=== PATIENT | female | born 1985 | race Asian ===

== ENCOUNTER 2019-03-13 21:20 | Inpatient (IN) | payer BC ==
[2019-03-13 21:55] VITALS: BMI 24.3
--- NOTE | 2019-03-13 22:00 | PDOC.LDHP ---
Labor and Delivery H&P Allergies/Adverse Reactions: Allergies Allergy/AdvReac Type Severity Reaction Status Date / Time Beef Containing Products Allergy Intermediate Hives Verified 03/13/19 21:46 doxycycline Allergy Intermediate Verified 03/13/19 21:46 tetracycline Allergy Mild Stomach Verified 03/13/19 21:46 Ache - Plan -: PCP: Erich HPI: This is a 33 yo at 37.5 wks presenting for contractions. They started about 2pm today 10 minutes apart and have gradually gotten stronger and closer, to about every 6-7 minutes now. She states she has been able to tolerate PO intake without difficulty. She affirms movement, denies ROM, denies bleeding/discharge. Denies DEGROOT, visual changes, SOB, or swelling. History: OB hx: G1 PMH: neg PSH: neg Meds: PNV Soc Hx: denies smoking, alcohol, drugs Fam Hx: denies downs, congenital defects Blood type: O+ Abs screen neg Hep b neg RPR/HIV neg Rubella immune PAP NILM GC/CT neg 1 hr GCT: 81 GBS unknown REVIEW OF SYSTEMS: Gen: no fever, chills, or sweats Neuro: no numbness/tingling, no weakness, denies headache Eyes: no visual changes ENT: no hearing changes, no sore throat, no runny nose Resp: no cough, no SOB, no wheeze Card: denies chest pain, no palpitations GI: no N/V/D, no abdominal pain : no dysuria, no hematuria MSK: no myalgias, no joint pain/stiffness Heme: no easy bruising/bleeding Skin: no rash, no erythema PHYSICAL EXAMINATION: General: NAD, alert and oriented x3 HEENT: PERRLA, EOMI, normal sclera, oropharynx without erythema or exudate Neck: Supple. Full ROM. Heart/Cardiovascular System: RRR, Cap refill < 3 seconds, no rub, no murmur Lungs/Respiratory System: clear to auscultation bilaterally. No increased work of breathing. Room air. Abdomen/Gastro-Intestinal System: no abdominal tenderness, normal bowel sounds, Gravid Extremities: Warm extremities. No cyanosis or edema. Neuro: No gross deficits appreciated. CN 2-12 grossly intact Psychiatry: Awake, Alert and cooperative with exam Skin: No lesions, rashes, or ulcers Musculoskeletal: Full ROM A/P: This is a 33 yo at 37.5 wks presenting for contractions # Term , active labor - GBS negative - SVE 1 cm in office yesterday, /-3 posterior at presentation now /- 3 after 3.5 hours - Gave patient morphine for pain relief, desires epidural - Will admit for labor
[2019-03-13] MEDS ORDERED: Lactated Ringer's 1,000 ML IV SCH (22:15)
[2019-03-13] MEDS ORDERED: Morphine 4 MG/ML VIAL SLOW IVP SCH ×2 (22:30→23:45)
[2019-03-13] MEDS: Lactated Ringer's 1,000 ML IV SCH (23:50)
[2019-03-14] MEDS ORDERED: NS / Oxytocin 40 units/1000ml 1,000 ML IV PRN (01:50)
[2019-03-14] MEDS ORDERED: Promethazine HCl 25 MG/ML VIAL IM PRN ×2 (01:50→03:01)
[2019-03-14] MEDS ORDERED: Ondansetron PF 4 MG/2 ML Vial IVP PRN ×3 (01:50→16:32)
[2019-03-14] MEDS ORDERED: Lidocaine 1% (PF) 30 ML VIAL SC SCH (01:50)
[2019-03-14] MEDS ORDERED: Butorphanol Tartrate 1 MG/ML VIAL SLOW IVP SCH (02:00)
[2019-03-14 02:07] LABS: Hemoglobin 13.8 g/dL (12.0-16.0); Mean Corpuscular HGB CONC 34.2 g/dL (32.0-36.0); Mean Corpuscular Hemoglobin 33.1 pg (27.0-31.0); Mean Corpuscular Volume 96.6 fL (78.0-98.0); Platelet Count 239 thou/uL (130-400); RBC Distribution Width 11.5 % (11.5-14.5); Red Blood Cell (RBC) Count 4.19 mill/uL (4.20-5.40); White Blood Cell (WBC) Count 11.8 thou/uL (4.8-10.8)
[2019-03-14] MEDS ORDERED: Fentanyl 4 mcg/Bup 0.1% Cadd 100 ML ONE ×2 (02:13→11:03)
[2019-03-14 02:46] LABS: HBSAg Index 0.35 S/CO (0-0.99); Hep B Surf Ag Non-Reactive S/CO (NonReactive)
[2019-03-14] MEDS ORDERED: diphenhydrAMINE 50 MG/ML VIAL IVP PRN (03:01)
[2019-03-14] MEDS ORDERED: Acetaminophen 325 MG TAB PO PRN (03:01)
[2019-03-14] MEDS ORDERED: ePHEDrine/0.9% NaCl/PF SYRINGE 50 mg/10 ml SLOW IVP PRN (03:01)
[2019-03-14] MEDS ORDERED: Naloxone HCl 0.4 mg/ml Vial IVP PRN ×2 (03:01)
[2019-03-14] MEDS ORDERED: Lactated Ringer's 500 ML IV PRN (03:01)
[2019-03-14] MEDS ORDERED: Hydrocerin (Eucerin) Cream 120 gm Jar TOP PRN (03:01)
[2019-03-14] MEDS ORDERED: Communication Order-Pharmacy FS SCH (03:15)
[2019-03-14] MEDS ORDERED: Fentanyl 4 mcg/Bupivacaine 0.1% Cassette 100 ML EPIDURAL SCH (03:15)
[2019-03-14] MEDS: Lactated Ringer's 1,000 ML IV SCH ×2 (04:00→11:25)
[2019-03-14 04:22] LABS: Syphilis Antibody Nonreactive (Nonreactive); Syphilis Antibody Index 0.04 S/CO (<1.00 Non-Reactive)
--- NOTE | 2019-03-14 06:49 | PDOC.LDPN ---
Labor & Delivery Progress Note - Subjective Subjective: comfortable, no concerns - Objective Vital signs reviewed and normal: yes General: NAD, resting, breathing through contractions Uterine fundus: non tender Dilation: 4.5 Effacement: 90% Station: -2 FHT: category 1 Gould contractions every: 4-5 - Assessment (1) Term Code(s): Z34.90 - ENCNTR FOR SUPRVSN OF NORMAL , UNSP, UNSP TRIMESTER Current Visit: Yes Status: Acute -: This is a 33 yo at 37.5 wks presenting for contractions # Term , active labor - GBS negative - 1/-3 -> 4/90/-3 -> 4.5/90/-2 - contactions q4-5 - epidural providing sufficient pain relief - expectant management Addendum - Attending - Attending Attestation Date/Time: 03/14/19 2221 I personally evaluated the patient and discussed the management with Dr. Valdes I agree with the History, Examination, Assessment and Plan documented above with any addition or exceptions noted below.
--- NOTE | 2019-03-14 09:42 | PDOC.LDPN ---
Labor & Delivery Progress Note - Subjective Subjective: comfortable - Objective Vital signs reviewed and normal: yes General: NAD, resting Dilation: 8 Effacement: 100% Station: 0 FHT: category 1 AROM: clear fluid - Assessment (1) Term Code(s): Z34.90 - ENCNTR FOR SUPRVSN OF NORMAL , UNSP, UNSP TRIMESTER Current Visit: Yes Status: Acute -: This is a 33 yo at 37.5 wks presenting for contractions # Term , active labor - GBS negative - 1/-3 -> 4/-3 -> 4.5/90/-2 -> 790/-2 -> 8/100/0, AROM @ 0940 - contactions q4-5 - epidural providing sufficient pain relief - expectant management
[2019-03-14] MEDS ORDERED: NS / Oxytocin 40 units/1000ml 1,000 ML ONE (09:52)
[2019-03-14] MEDS ORDERED: Lidocaine 1% (PF) 30 ML VIAL ONE (09:52)
[2019-03-14] MEDS ORDERED: Misoprostol 100 MCG TAB ONE (11:05)
[2019-03-14] MEDS ORDERED: ePHEDrine/0.9% NaCl/PF SYRINGE 50 mg/10 ml ONE (11:11)
[2019-03-14] MEDS ORDERED: Bupivacaine HCl 0.25%/Epi 0.0005/PF 10 ML VIAL FS ONE (11:11)
--- NOTE | 2019-03-14 12:36 | PDOC.LDPN ---
Labor & Delivery Progress Note - Subjective Subjective: comfortable - Objective Vital signs reviewed and normal: yes General: NAD Dilation: 9 Effacement: 100% Station: 0 FHT: category 1 AROM: clear fluid - Assessment (1) Term Code(s): Z34.90 - ENCNTR FOR SUPRVSN OF NORMAL , UNSP, UNSP TRIMESTER Current Visit: Yes Status: Acute -: This is a 33 yo at 37.5 wks presenting for contractions # Term , active labor - GBS negative - 1/-3 -> 4/-3 -> 4.5/90/-2 -> 7/-2 -> 8/100/0, AROM @ 0940 -> 9/100/ 0 @ 1230, start pit low dose - contactions q4-5 - epidural providing sufficient pain relief - expectant management
[2019-03-14] MEDS ORDERED: NS w/ Oxytocin 10 units 500 ML IV SCH (12:45)
--- NOTE | 2019-03-14 15:06 | PDOC.OPDEL ---
OB Operative/Delivery Note - Additional Findings/Plan Compilations/Other Findings: Vaginal Delivery Delivering Physician: Dr Jonny Valdes Attending: Dr. Jodi Villalba Procedure: Spontaneous Vaginal Delivery Anesthesia: epidural QBL: 426 ml Pre-op Diagnosis: 1.Term intrauterine in labor Post-op Diagnosis: 1.Term intrauterine , delivered Indications: A 33y/o female presents in active labor Delivery Note: This is 33yo F @ 37.6 wks who delivered a viable M at 1314 on 03/14/19. Following an uneventful antepartum course, a vigorous male was delivered over an intact perineum in the R occipitoanterior position. Anterior Shoulder and then remainder of the body delivered. No nuchal cord. The head was held down and mouth and nares were bulb suctioned. Cord clamped and cut and cord blood collected. Placenta delivered intact in the Grady presentation with a 3 vessel cord noted. Fundal massage was performed and the fundus was firm. The cervix and vagina were inspected and found to have R and L vaginal side wall tear along with 2nd degree perineal tear in a stellate fashion. There was a large amount of swelling secondary to 2 hours of pushing. First the R vaginal side wall was repaired with a running locking 2-0 Vicryl suture. Then the L vaginal side wall was repaired in a running locking fashion with 2-0 vicryl suture, the 2nd degree perineal teal was incorporated in this repair in a running non-locking fashion. Following this there was a lack of hemostasis on the R sidewall so another running locking repair with 2-0 vicryl was completed. Following this hemostasis was appreciated. went to nursery in good condition for routine care. Apgars were 9/9 at 1 & 5 minutes, respectively. Patient tolerated delivery well and went to after routine recovery/care. Findings: grossly normal 5lbs 13 oz , intact placenta discarded, cord blood sent
[2019-03-14] MEDS ORDERED: Preparation H Ointment 28 GM TUBE PR PRN (16:32)
[2019-03-14] MEDS ORDERED: Milk Of Magnesia 30 ML UDCUP PO PRN (16:32)
[2019-03-14] MEDS ORDERED: Bisacodyl 10 MG SUPP PR PRN (16:32)
[2019-03-14] MEDS ORDERED: Lanolin Ointment 7 GM TUBE TOP PRN (16:32)
[2019-03-14] MEDS ORDERED: Benzocaine-Menthol 82.5 ML CAN TOP PRN (16:32)
[2019-03-14] MEDS ORDERED: Adacel (T-DAP) 0.5 ML SYRINGE IM ONE (16:32)
[2019-03-14] MEDS ORDERED: NS / Oxytocin 40 units/1000ml 1,000 ML IV SCH (16:32)
[2019-03-14] MEDS: Ferrous Sulfate 325 MG TAB PO SCH (18:37)
[2019-03-14] MEDS: Acetaminophen 325 MG TAB PO SCH (18:52)
[2019-03-14] MEDS: traMADol HCl 50 MG TAB PO PRN (18:52)
[2019-03-14] MEDS: Docusate Calcium (SURFAK) 240 MG CAP PO SCH (21:13)
[2019-03-15] MEDS: Acetaminophen 325 MG TAB PO SCH ×5 (00:06→23:59)
[2019-03-15] MEDS: traMADol HCl 50 MG TAB PO PRN ×3 (05:14→21:04)
--- NOTE | 2019-03-15 08:03 | PDOC.PP ---
Post Progress Note Post Day #: 1 Subjective: No concerns. Minimal lochia. Moderate vaginal pain. Breast feeding, LC today. PO intake tolerated: yes Flatus: yes Ambulation: yes Vital Signs (12 hours) Temp Pulse Resp BP 03/15/19 05:00 98.3 F 78 18 117/66 03/15/19 00:00 99.0 F 85 18 114/59 L 03/14/19 20:45 98.3 F 92 18 118/65 Weight Weight 137 lb - Physical Examination General: NAD Cardiovascular: RRR Abdominal: no distention, appropriately TTP Fundus firm & at: below umbilicus Extremities: negative homans (B) Neurological: no gross focal deficits Psychiatric: A&Ox3, normal affect Result Diagrams: 03/14/19 01:59 Additional Labs: Post Labs Blood Type O POSITIVE 03/14/19 02:23 Hep Bs Antigen Non-Reactive S/CO (NonReactive) 03/14/19 02:00 (1) Vaginal delivery Code(s): O80 - ENCOUNTER FOR FULL-TERM UNCOMPLICATED DELIVERY Status: Acute - Assessment/Plan PPD1 VVSAF CBC pending LC today Continue PP care, sitz baths. Plan for d/c tomorrow.
[2019-03-15] MEDS: Docusate Calcium (SURFAK) 240 MG CAP PO SCH ×2 (08:58→21:04)
[2019-03-15 09:05] LABS: Hemoglobin 10.9 g/dL (12.0-16.0); Mean Corpuscular HGB CONC 34.8 g/dL (32.0-36.0); Mean Corpuscular Hemoglobin 33.9 pg (27.0-31.0); Mean Corpuscular Volume 97.4 fL (78.0-98.0); Mean Platelet Volume 8.8 fL (7.4-10.4); Platelet Count 189 thou/uL (130-400); RBC Distribution Width 11.3 % (11.5-14.5); Red Blood Cell (RBC) Count 3.22 mill/uL (4.20-5.40); White Blood Cell (WBC) Count 16.9 thou/uL (4.8-10.8)
[2019-03-15] MEDS: Ferrous Sulfate 325 MG TAB PO SCH ×2 (09:18→13:52)
[2019-03-16] MEDS: traMADol HCl 50 MG TAB PO PRN ×2 (05:18→12:58)
[2019-03-16] MEDS: Acetaminophen 325 MG TAB PO SCH ×3 (06:28→17:47)
[2019-03-16 08:10] VITALS: BP 100/51; TEMP 98
--- NOTE | 2019-03-16 08:21 | PDOC.PP ---
Post Progress Note Post Day #: 2 Subjective: pt evaluated PPD2. Pt is doing well. Pain improved today but still having some vaginal discomfort. Minimal lochia. Pt up and ambulatory. She is breast feeding and pumping. She is eating a normal diet. She is urinating without difficulty. PO intake tolerated: yes Flatus: yes Ambulation: yes Vital Signs (12 hours) Temp Pulse Resp BP Pulse Ox 03/16/19 08:10 98.0 F 68 20 100/51 L 97 03/15/19 20:55 97 Weight Weight 137 lb - Physical Examination General: NAD Cardiovascular: RRR Respiratory: clear to auscultation bilaterally, non-labored breathing Abdominal: + bowel sounds, lochia, no distention, appropriately TTP Fundus firm & at: 2 cm below umbilicus Extremities: negative homans (B) Neurological: no gross focal deficits Psychiatric: A&Ox3, normal affect Result Diagrams: 03/15/19 08:32 Additional Labs: Post Labs Blood Type O POSITIVE 03/14/19 02:23 Hep Bs Antigen Non-Reactive S/CO (NonReactive) 03/14/19 02:00 (1) Vaginal delivery Code(s): O80 - ENCOUNTER FOR FULL-TERM UNCOMPLICATED DELIVERY Status: Acute - Assessment/Plan Pt doing well PPD2. VSSAF H&H is stable. Pain well controlled with minimal lochia. consult yesterday. Baby is latching and mom is also pumping. Plan to d/c today when baby is discharged.
[2019-03-16] MEDS: Ferrous Sulfate 325 MG TAB PO SCH ×2 (09:46→17:27)
[2019-03-16] MEDS: Docusate Calcium (SURFAK) 240 MG CAP PO SCH (09:47)
== END 2019-03-16 18:15 | disposition home or self-care (01) | DRG 807 ==
LOC: L&D/OP 21:20 → L&D 03-14 01:50 → 3SW 03-14 18:11
PROVIDERS: ADMIT Obstetrics & Gynecology; ATTEND Obstetrics & Gynecology
PROC: 10907ZC Drainage of Amniotic Fluid, Therapeutic from Products of Conception, Via Natural or Artificial Opening (ICD-10-PCS; principal; 2019-03-14)
PROC: 10E0XZZ Delivery of Products of Conception, External Approach (ICD-10-PCS; 2019-03-14)
PROC: 0KQM0ZZ Repair Perineum Muscle, Open Approach (ICD-10-PCS; 2019-03-14)
DX: O70.1 Second degree perineal laceration during delivery (principal); Z37.0 Single live birth; Z3A.37 37 weeks gestation of pregnancy
CPT/HCPCS: 36415; 51702; 85027; 86780; 86850; 86900; 86901; 87340; 90715; 99285; J0595; J2001; J2270

== ENCOUNTER 2022-08-15 10:07 | Emergency (ER) | payer BC ==
[2022-08-15 11:01] LABS: #Basophils 0.1 thou/uL (0.0-0.2); #Eosinphils 0.7 thou/uL (0.0-0.7); #Lymphocytes 2.4 thou/uL (1.20-3.40); #Monocytes 0.4 thou/uL (0.11-0.59); #Neutrophils 3.3 thou/uL (1.40-6.50); %Lymphocytes 34.6 % (21.0-51.0); %Monocytes 6.4 % (0.0-10.0); Hemoglobin 12.8 g/dL (12.0-16.0); Mean Corpuscular Hemoglobin 31.8 pg (27.0-31.0); Mean Corpuscular Volume 96.3 fL (78.0-98.0); Mean Platelet Volume 7.6 fL (7.4-10.4); Platelet Count 369 thou/uL (130-400); RBC Distribution Width 11.9 % (11.5-14.5); Red Blood Cell (RBC) Count 4.02 mill/uL (4.20-5.40); White Blood Cell (WBC) Count 6.9 thou/uL (4.8-10.8)
[2022-08-15 11:24] LABS: ALT (SGPT) 11 U/L (8-55); AST (SGOT) 17 U/L (5-34); Alkaline Phosphatase 84 U/L (40-110); Anion Gap 12 mmol/L (10-20); BUN (Urea Nitrogen) 10 mg/dL (7.0-18.7); Bilirubin, Total 0.3 mg/dL (0.2-1.2); Calc. Creatinine Clearance 0 mL/min (70-130); Carbon Dioxide 26 mmol/L (22-29); Chloride 106 mmol/L (98-107); Estimated GFR 103; Globulin 3.3 g/dL (2.4-3.5); Glucose 88 mg/dL (70-105); Lipase 26 U/L (8-78); Potassium 4.2 mmol/L (3.5-5.1); Protein, Total 8.3 g/dL (6.0-8.3); Sodium 140 mmol/L (136-145)
== END 2022-08-15 12:38 | disposition home or self-care (01) ==
LOC: ERS 10:07
DX: M54.12 Radiculopathy, cervical region (principal)
CPT/HCPCS: 71045; 80053; 83690; 84484; 85025; 93005